=== PATIENT | male | born 1955 | race Caucasian/White ===

== ENCOUNTER → 2017-02-14 | Outpatient (CLI) | payer OTHER | LOC: FIMAGING 14:17 | PROVIDERS: ATTEND Physician Assistant | DX: R09.02 Hypoxemia (principal) ==

== ENCOUNTER 2018-05-23 21:59 | Emergency (ER) | payer OTHER ==
[2018-05-23] MEDS ORDERED: NS 1,000 ML IV ONE (22:16)
--- NOTE | 2018-05-23 22:16 | EDPHY ---
H & P Stated Complaint: SOB, fever, coughing and generalized body ache since Time Seen by Provider: 05/23/18 22:15 HPI/ROS: HPI CHIEF COMPLAINT: Cough, fever, not feeling well. 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 Not feeling well and muscle aches. Patient states on he was eating a sandwich and was choking on it, he states he "went down the wrong pipe" states he had vigorous coughing after this, and this cough persisted for the next 2 days. He began to feel muscle aches, not well. Developed a temperature 101 degrees today. This is what prompted him to come to the emergency room. Denies any chest pain. He denies pleuritic pain or hemoptysis. Past Medical History: Neuropathy, disc herniation, back pain, gout Past Surgical History: Back surgery. Social History: Denies daily use of drugs alcohol tobacco. Neurologist. Family History: Noncontributory ROS REVIEW OF SYSTEMS: 10 Systems were reviewed and negative with the exception of the elements mentioned in the history of present illness. Exam Constitutional appears well nontoxic no acute distress triage nursing summary reviewed, vital signs reviewed, awake/alert. Vital signs stable triage. Eyes normal conjunctivae and sclera, EOMI, PERRLA. HENT normal inspection, atraumatic, moist mucus membranes, no epistaxis, neck supple/ no meningismus, no raccoon eyes. Respiratory bronchitic sounding cough on exam, otherwise clear to auscultation bilaterally, normal breath sounds, no respiratory distress, no wheezing. Cardiovascular rate normal, regular rhythm, no murmur, no edema, distal pulses normal. Gastrointestinal soft, non-tender, no rebound, no guarding, normal bowel sounds, no distension, no pulsatile mass. Genitourinary no CVA tenderness. Musculoskeletal no midline vertebral tenderness, full range of motion, no calf swelling, no tenderness of extremities, no meningismus, good pulses, neurovascularly intact. Skin pink, warm, & dry, no rash, skin atraumatic. Neurologic awake, alert and oriented x 3, AAOx3, moves all 4 extremities equally, motor intact, sensory intact, CN II-XII intact, normal cerebellar, normal vision, normal speech. Psychiatric normal mood/affect. Heme/Lymph/Immune no lymphadenopathy. Differential Diagnosis: Includes but is not limited to in a particular order aspiration pneumonia, micro aspiration, viral syndrome, viral pneumonia, bacterial pneumonia, influenza Medical Decision Making: Plan for this patient IV establishment IV fluid bolus , basic labs, chest x-ray, influenza, and re-evaluate. Re-evaluation: Influenza a positive. Chest x-ray reviewed negative for acute cardiopulmonary disease. 2356: Patient re-evaluated this time resting comfortably in no acute distress. Is feeling much better after IV fluids, fever control and Tamiflu. He has not any vomiting here. Patient chest x-ray shows no evidence of pneumonia. Patient's influenza test came back positive. Patient be started on Tamiflu. I did encourage the patient to drink lots of fluids stay well-hydrated, return to the emergency room if there is worsening symptoms includes high fever, vomiting, not doing well. He is comfortable this plan. Source: Patient - Personal History Current Tetanus/Diphtheria Vaccine: Yes Current Tetanus Diphtheria and Acellular Pertussis (TDAP): Yes - Medical/Surgical History Hx Asthma: No Hx Chronic Respiratory Disease: Yes Hx Diabetes: No Hx Cardiac Disease: Yes Hx Renal Disease: No Hx Cirrhosis: No Hx Alcoholism: No Hx HIV/AIDS: No Hx Splenectomy or Spleen Trauma: No Other PMH: arthitis, epidural fibrosis, chronic pain, paresthesias/dysaesthesia , MPEG weakness, lower back pain, nocturnal myoclonus, ulnar neuropathy, acut hearing loss, BPPV, chalazion with cellulitis, hemorrhoids, rectal fissure, lumbar discectomy, free-fragment removal, cervical abcess drainage, gout, hyperchollesterolemia, hyperlipidemia, sleep apnea, fatty liver - Social History Smoking Status: Never smoked Constitutional: Initial Vital Signs Temperature (C) 37.1 C 05/23/18 22:01 Heart Rate 116 H 05/23/18 22:01 Respiratory Rate 16 05/23/18 22:01 Blood Pressure 145/75 H 05/23/18 22:01 O2 Sat (%) 94 05/23/18 22:01 O2 Delivery Mode Room Air O2 (L/minute) 2 Allergies/Adverse Reactions: ampicillin Allergy (Verified 05/23/18 22:11) willam Allergy (Verified 05/23/18 22:10) steri-strips, latex Allergy (Uncoded 05/23/18 22:11) Home Medications: Medication Instructions Recorded Allopurinol 05/23/18 Colace 05/23/18 DIAZEPAM 05/23/18 Gabapentin 05/23/18 Indomethacin 05/23/18 Lorazepam 05/23/18 Loritidine 05/23/18 Medrol Dose Issac 05/23/18 Naproxen Sodium 05/23/18 Oseltamivir Phosphate [Tamiflu 75 75 mg PO BID #10 cap 05/23/18 mg (*)] Percocet 10-325 mg Tablet 05/23/18 Prednisone 05/23/18 Ranitidine HCl 05/23/18 Rosuvastatin Calcium 05/23/18 Solu-Medrol 05/23/18 Medical Decision Making - Diagnostics Imaging Results: Imaging Impressions Chest X-Ray 05/23/18 22:16 Impression: 1. No active cardiopulmonary disease seen. - Data Points Laboratory Results: Laboratory Results 05/23/18 22:25 05/23/18 22:25 05/23/18 05/23/18 05/23/18 22:30 22:25 22:25 WBC 5.98 10^3/uL 10^3/uL (3.80-9.50) RBC 5.25 10^6/uL 10^6/uL (4.40-6.38) Hgb 16.9 g/dL g/dL (13.7-17.5) Hct 47.1 % % (40.0-51.0) MCV 89.7 fL fL (81.5-99.8) MCH 32.2 pg pg (27.9-34.1) MCHC 35.9 g/dL g/dL (32.4-36.7) RDW 12.8 % % (11.5-15.2) Plt Count 155 10^3/uL 10^3/uL (150-400) MPV 10.0 fL fL (8.7-11.7) Neut % (Auto) 63.3 % % (39.3-74.2) Lymph % (Auto) 22.7 % % (15.0-45.0) [place] % (Auto) 10.7 % % (4.5-13.0) Eos % (Auto) 1.8 % % (0.6-7.6) Baso % (Auto) 1.2 % % (0.3-1.7) Nucleat RBC Rel Count 0.0 % % (0.0-0.2) Absolute Neuts (auto) 3.78 10^3/uL 10^3/uL (1.70-6.50) Absolute Lymphs (auto) 1.36 10^3/uL 10^3/uL (1.00-3.00) Absolute Monos (auto) 0.64 10^3/uL 10^3/uL (0.30-0.80) Absolute Eos (auto) 0.11 10^3/uL 10^3/uL (0.03-0.40) Absolute Basos (auto) 0.07 10^3/uL 10^3/uL (0.02-0.10) Absolute Nucleated RBC 0.00 10^3/uL 10^3/uL (0-0.01) Immature Gran % 0.3 % % (0.0-1.1) Immature Gran # 0.02 10^3/uL 10^3/uL (0.00-0.10) Sodium 137 mEq/L mEq/L (135-145) Potassium 3.8 mEq/L mEq/L (3.5-5.2) Chloride 103 mEq/L mEq/L (97-110) Carbon Dioxide 25 mEq/l mEq/l (22-31) Anion Gap 9 mEq/L mEq/L (6-14) BUN 17 mg/dL mg/dL (7-23) Creatinine 1.3 mg/dL mg/dL (0.7-1.3) Estimated GFR 56 Glucose 123 mg/dL H mg/dL (70-100) Calcium 9.5 mg/dL mg/dL (8.5-10.4) Nasal Influenza A PCR FLU A DETECTED H (NEGATIVE) Nasal Influenza B PCR NEGATIVE FOR FLU B (NEGATIVE) Medications Given: Discontinued Medications Sodium Chloride (Ns) 1,000 mls @ 0 mls/hr IV EDNOW ONE; Wide Open PRN Reason: Protocol Stop: 05/23/18 22:17 Last Admin: 05/23/18 22:24 Dose: 1,000 mls Ibuprofen (Motrin) 800 mg PO EDNOW ONE Stop: 05/23/18 23:25 Last Admin: 05/23/18 23:30 Dose: 800 mg Oseltamivir Phosphate (Tamiflu) 75 mg PO EDNOW ONE Stop: 05/23/18 23:24 Last Admin: 05/23/18 23:31 Dose: 75 mg Departure - Departure Disposition: Home, Routine, Self-Care Clinical Impression: Influenza, Fever Condition: Good Instructions: Influenza (ED), Fever in Adults (ED) Additional Instructions: 1. Make sure to drink lots of fluids stay well-hydrated. 2. Alternate Tylenol and Motrin every 6-8 hours for fever and pain control 3. Tamiflu as prescribed with food. 4. Please return to the emergency room if he develops worsening symptoms Referrals: Ibrahima Hathaway MD [Primary Care Provider] - As per Instructions Prescriptions: Oseltamivir Phosphate [Tamiflu 75 mg (*)] 75 mg PO BID #10 cap
[2018-05-23 22:34] LABS: PLATELET COUNT 155 10^3/uL (150-400)
[2018-05-23] MEDS ORDERED: OSELTAMIVIR PHOSPHATE 75 MG CAP PO ONE (23:23)
[2018-05-23] MEDS ORDERED: IBUPROFEN 800 MG TAB PO ONE (23:24)
[2018-05-24 00:06] VITALS: BP 114/71
[2018-05-24] MEDS ORDERED: ALBUTEROL INH PREPACK MDI TAKEHOME ONE (00:12)
== END 2018-05-24 00:23 | disposition home or self-care (01) ==
DX: J10.1 Influenza due to other identified influenza virus with other respiratory manifestations (principal); E86.9 Volume depletion, unspecified